=== PATIENT | female | born 1950 | race Hispanic/Latino ===

== ENCOUNTER 2017-05-12 23:20 | Emergency (ER) | payer MEDICARE ==
[2017-05-12] MEDS ORDERED: HYDROXYZINE HCL 25 MG TABLET ONE (23:46)
[2017-05-12 23:59] LABS: BASOPHILS % (AUTO) 0.6 % (0.0-5.0); EOSINOPHILS % (AUTO) 1.6 % (0.0-8.0); HEMATOCRIT 38.1 % (36-48); LYMPHOCYTES % (AUTO) 31.7 % (21.0-51.0); MEAN CORPUSCULAR HEMOGLOBIN 30.9 pg (27.0-33.0); MEAN CORPUSCULAR HGB CONC 34.3 g/dL (32.0-36.0); MONOCYTES % (AUTO) 5.3 % (3.0-13.0); NEUTROPHILS % (AUTO) 60.8 % (40.0-77.0); PLATELET COUNT (AUTO) 230 K/uL (130-400); RED BLOOD CELL COUNT(AUTO) 4.23 MIL/uL (4.00-5.50); RED CELL DISTRIBUTION WIDTH 13.1 % (11.0-15.5); WHITE BLOOD COUNT (AUTO) 7.1 K/uL (4.8-10.8)
[2017-05-13 00:12] LABS: CREATININE 1.1 mg/dL (0.5-1.5); POTASSIUM 3.7 mmol/L (3.5-5.1)
[2017-05-13 00:13] LABS: BILIRUBIN,TOTAL 0.3 mg/dL (0.2-1.0); TOTAL PROTEIN, SERUM 7.1 g/dL (6.0-8.3)
== END 2017-05-13 00:51 | disposition home or self-care (01) ==
LOC: EDH 23:20
DX: F43.20 Adjustment disorder, unspecified (principal); R51 Headache; G47.00 Insomnia, unspecified; E78.5 Hyperlipidemia, unspecified; Z88.0 Allergy status to penicillin
CPT/HCPCS: 36415; 80053; 85025; 93005

== ENCOUNTER 2019-09-14 15:42 | Observation (INO) | payer OTHER, MEDICARE ==
[~2019-09-14] VITALS: Ht 154.9 cm; Wt 81.0 kg
[2019-09-14 16:48] LABS: BASOPHILS % (AUTO) 0.2 % (0.0-5.0); EOSINOPHILS % (AUTO) 0.2 % (0.0-8.0); HEMATOCRIT 37.4 % (36-48); LYMPHOCYTES % (AUTO) 10.1 % (21.0-51.0); MEAN CORPUSCULAR HEMOGLOBIN 30.8 pg (27.0-33.0); MEAN CORPUSCULAR VOLUME 90.6 fL (79-99); MONOCYTES % (AUTO) 2.4 % (3.0-13.0); NEUTROPHILS % (AUTO) 86.7 % (40.0-77.0); PLATELET COUNT (AUTO) 233 K/uL (130-400); RED BLOOD CELL COUNT(AUTO) 4.13 MIL/uL (4.00-5.50); RED CELL DISTRIBUTION WIDTH 12.2 % (11.0-15.5); WHITE BLOOD COUNT (AUTO) 8.3 K/uL (4.8-10.8)
[2019-09-14] MEDS ORDERED: ONDANSETRON HCL 4 MG/2 ML VIAL ONE (16:56)
[2019-09-14] MEDS ORDERED: MECLIZINE HCL 25 MG TABLET ONE (16:56)
[2019-09-14 17:00] LABS: CREATININE 0.7 mg/dL (0.5-1.5); POTASSIUM 3.7 mmol/L (3.5-5.1)
[2019-09-14 17:03] LABS: INR 0.9 (0.85-1.15); PARTIAL THROMBOPLASTIN TIME 21.5 SEC (26.3-35.5); PROTHROMBIN TIME 9.8 SEC (9.6-11.6)
[2019-09-14 17:05] LABS: BILIRUBIN,TOTAL 0.3 mg/dL (0.2-1.0); TOTAL PROTEIN, SERUM 6.9 g/dL (6.0-8.3)
[2019-09-14 17:07] LABS: B-TYPE NATRIURETIC PEPTIDE 120 pg/mL (0-100)
[2019-09-14] MEDS ORDERED: ONDANSETRON HCL 4 MG/2 ML VIAL IVP PRN (20:15)
[2019-09-14] MEDS ORDERED: ACETAMINOPHEN 325 MG TAB PO PRN (20:15)
[2019-09-14 22:55] VITALS: BP 140/47
[2019-09-14 23:00] VITALS: BP 138/59
[2019-09-14 23:05] VITALS: BP 144/65
[2019-09-14 23:43] LABS: CREATINE KINASE, TOTAL 56 U/L (21-232); MYOGLOBIN 43 ng/mL (10-92); TROPONIN I < 0.04 ng/mL (0.00-0.06)
[2019-09-15 03:33] VITALS: BP 114/59
[2019-09-15] MEDS ORDERED: PRAV40TA3 PO (03:51)
[2019-09-15] MEDS ORDERED: PANT40TA54 PO (03:51)
[2019-09-15 04:16] LABS: HEMATOCRIT 34.1 % (36-48); MEAN CORPUSCULAR HEMOGLOBIN 29.8 pg (27.0-33.0); MEAN CORPUSCULAR HGB CONC 33.4 g/dL (32.0-36.0); MEAN CORPUSCULAR VOLUME 89.3 fL (79-99); RED BLOOD CELL COUNT(AUTO) 3.82 MIL/uL (4.00-5.50); RED CELL DISTRIBUTION WIDTH 12.4 % (11.0-15.5); WHITE BLOOD COUNT (AUTO) 6.6 K/uL (4.8-10.8)
[2019-09-15 04:56] LABS: CARBON DIOXIDE 28 mmol/L (21-32); CHLORIDE 107 mmol/L (101-111); CREATINE KINASE, TOTAL 47 U/L (21-232); CREATININE 0.7 mg/dL (0.5-1.5); GLOMERULAR FILTR. RATE CALC 88 mL/min (>60); GLUCOSE,RANDOM 112 mg/dL (70-105); MYOGLOBIN 40 ng/mL (10-92); POTASSIUM 3.9 mmol/L (3.5-5.1); SODIUM SERUM 142 mmol/L (136-145); TROPONIN I < 0.04 ng/mL (0.00-0.06); UREA NITROGEN, BLOOD 16 mg/dL (7-18)
[2019-09-15 08:00] VITALS: BP 122/54
[2019-09-15] MEDS ORDERED: PANTOPRAZOLE SODIUM 40 MG TABLET.DR PO SCH (09:00)
[2019-09-15 11:00] VITALS: BP 138/70
--- NOTE | 2019-09-15 14:23 | NUR ---
MET W PATIENT FOR DC PLANNING- LIVES ALONE, ACTIVE INDEPENDNET, NO DME, DAUGHTER MOSTLY DRIVES TO [facility], HAS PORVIDER 3 HRS DAILY; STATES FEELS SAFE TO RETURN HOME Addendum: 09/16/19 at 1425 by MIRIAM BAILON RN CM Amended: Links added.
[2019-09-15 16:00] VITALS: BP 128/63
[2019-09-15] MEDS ORDERED: SIMVASTATIN 20 MG TABLET PO SCH (21:00)
== END 2019-09-15 19:15 | disposition home or self-care (01) ==
LOC: EDH 15:42 → EDHIP 19:38 → 3AH 21:48
PROVIDERS: ADMIT Internal Medicine; ATTEND Internal Medicine
DX: G43.909 Migraine, unspecified, not intractable, without status migrainosus (principal); R55 Syncope and collapse; L80 Vitiligo; M19.90 Unspecified osteoarthritis, unspecified site; E78.5 Hyperlipidemia, unspecified; Z86.73 Personal history of transient ischemic attack (TIA), and cerebral infarction without residual deficits; Z88.0 Allergy status to penicillin
CPT/HCPCS: 36415 ×2; 70450; 70544 ×2; 70551; 71045; 80048; 80053; 82550 ×3; 83690; 83874 ×2; 83880; 84484 ×3; 85025; 85027; 85610; 85730; 93005; 93306; 93880; 99285; A4600; G0378 ×10; J2405

== ENCOUNTER 2021-09-14 11:21 | Observation (INO) | payer OTHER, MEDICARE ==
[~2021-09-14] VITALS: Ht 167.6 cm; Wt 75.5 kg
[~2021-09-14 11:21] MED LIST: PANT40TA54 PO; PRAV40TA3 PO
[2021-09-14] MEDS ORDERED: DILTIAZEM 125 MG/25 ML INJ IV ONE (11:54)
[2021-09-14 12:00] LABS: BASOPHILS % (AUTO) 0.3 % (0.0-5.0); EOSINOPHILS % (AUTO) 0.8 % (0.0-8.0); HEMATOCRIT 43.1 % (36-48); LYMPHOCYTES % (AUTO) 17.7 % (21.0-51.0); MEAN CORPUSCULAR HEMOGLOBIN 30.6 pg (27.0-33.0); MEAN CORPUSCULAR HGB CONC 33.9 g/dL (32.0-36.0); MEAN CORPUSCULAR VOLUME 90.4 fL (79-99); MONOCYTES % (AUTO) 3.8 % (3.0-13.0); NEUTROPHILS % (AUTO) 77.1 % (40.0-77.0); PLATELET COUNT (AUTO) 234 K/uL (130-400); RED BLOOD CELL COUNT(AUTO) 4.77 MIL/uL (4.00-5.50); RED CELL DISTRIBUTION WIDTH 12.2 % (11.0-15.5)
[2021-09-14] MEDS ORDERED: DILTIAZEM 125 MG/25 ML INJ 125 MG in 0.9%NACL 100ML 100 ML IV SCH (12:00)
[2021-09-14] MEDS ORDERED: DILTIAZEM 50MG VIAL IV SCH (12:00)
[2021-09-14 12:10] LABS: CREATININE 1.1 mg/dL (0.5-1.5); POTASSIUM 3.9 mmol/L (3.5-5.1)
[2021-09-14 12:12] LABS: INR 0.94 (0.85-1.15); PROTHROMBIN TIME 10.3 SEC (9.6-11.6)
[2021-09-14 12:15] LABS: BILIRUBIN,TOTAL 0.6 mg/dL (0.2-1.0); TOTAL PROTEIN, SERUM 6.7 g/dL (6.0-8.3)
[2021-09-14] MEDS ORDERED: DILTIAZEM 60MG TAB PO SCH (13:00)
[2021-09-14] MEDS: DILTIAZEM 60MG TAB PO SCH ×2 (18:03→23:15)
[2021-09-14 18:18] LABS: APPEARANCE,URINE Cloudy (CLEAR); BILIRUBIN,URINE Negative (NEGATIVE); COLOR,URINE Yellow (YELLOW); GLUCOSE, URINE (UA) Negative (NEGATIVE); KETONES,URINE Negative (NEGATIVE); LEUKOCYTE ESTERASE ,URINE Trace (NEGATIVE); NITRATE,URINE Negative (NEGATIVE); OCCULT BLOOD,URINE Negative (NEGATIVE); PROTEIN,URINE Negative (NEGATIVE); UROBILINOGEN,URINE 0.2 mg/dL (0.2-1.0)
[2021-09-14 18:32] LABS: BACTERIA,URINE Few /HPF (None Seen); RBC,URINE 0-1 /HPF (0-1); SQUAMOUS EPITHELIAL CELL,UR Moderate /HPF (0-2)
[2021-09-14 18:33] LABS: MUCUS,URINE Rare LPF (None Seen)
[2021-09-14] MEDS ORDERED: ENOXAPARIN SODIUM 1 MG/KG SQ SCH (21:00)
[2021-09-14 22:10] VITALS: BP 122/60
[2021-09-15 04:00] VITALS: BP 100/50
[2021-09-15 05:18] LABS: HEMATOCRIT 39.5 % (36-48); MEAN CORPUSCULAR HEMOGLOBIN 30.6 pg (27.0-33.0); MEAN CORPUSCULAR HGB CONC 34.4 g/dL (32.0-36.0); MEAN CORPUSCULAR VOLUME 88.8 fL (79-99); PLATELET COUNT (AUTO) 206 K/uL (130-400); RED BLOOD CELL COUNT(AUTO) 4.45 MIL/uL (4.00-5.50); RED CELL DISTRIBUTION WIDTH 12.3 % (11.0-15.5); WHITE BLOOD COUNT (AUTO) 6.3 K/uL (4.8-10.8)
[2021-09-15] MEDS: DILTIAZEM 60MG TAB PO SCH (05:40)
[2021-09-15 05:50] LABS: ALBUMIN 3.4 g/dL (3.5-5.0); BILIRUBIN,TOTAL 0.5 mg/dL (0.2-1.0); CREATININE 0.9 mg/dL (0.5-1.5); PHOSPHORUS 3.8 mg/dL (2.5-4.9); POTASSIUM 3.8 mmol/L (3.5-5.1); THYROID STIMULATING HORMONE 1.64 uIU/mL (0.36-3.74); TOTAL PROTEIN, SERUM 6.2 g/dL (6.0-8.3)
[2021-09-15 06:08] LABS: LYMPHOCYTES % (MANUAL) 21 % (22-44); MAN.DIFF COMMENT-IMPRESSION MANUAL DIFFERENTIAL; MONOCYTES % (MANUAL) 2 % (2-9); SEGMENTED NEUTROPHILS % 77 % (40-70)
[2021-09-15 06:15] LABS: B-TYPE NATRIURETIC PEPTIDE 231 pg/mL (0-100)
[2021-09-15 06:17] LABS: PLATELET MORPHOLOGY COMMENT ADEQUATE
[2021-09-15 07:00] VITALS: BP 101/40
[2021-09-15] MEDS ORDERED: POTASSIUM CHLORIDE 10% ELIXIR 20 MEQ/15 ML UDCUP PO PRN (08:00)
[2021-09-15] MEDS ORDERED: LACTULOSE 20 GM/30 ML UDCUP PO PRN (08:00)
[2021-09-15] MEDS ORDERED: ZOLPIDEM TARTRATE 5 MG TAB PO PRN (08:00)
[2021-09-15] MEDS ORDERED: LEVOFLOXACIN 500 MG/D5W 100 ML 100 ML IV SCH (08:00)
[2021-09-15] MEDS ORDERED: POTASSIUM CHLORIDE 20MEQ/100ML 100 ML IV PRN (08:00)
[2021-09-15] MEDS ORDERED: ACETAMINOPHEN 325 MG TAB PO PRN (08:00)
[2021-09-15] MEDS ORDERED: KCL 20 MEQ ERTAB PO PRN (08:00)
[2021-09-15] MEDS ORDERED: LOPERAMIDE 1 MG/7.5 ML UDCUP PO PRN (08:00)
[2021-09-15] MEDS ORDERED: ENOXAPARIN SODIUM 40 MG/0.4 ML SYRINGE SQ SCH (09:00)
[2021-09-15] MEDS: PANTOPRAZOLE 40 MG/VIAL IVP SCH (09:12)
[2021-09-15] MEDS ORDERED: DICY20TA2 PO (09:32)
[2021-09-15] MEDS ORDERED: CHOL200012 PO (09:32)
[2021-09-15] MEDS ORDERED: MECL-160 PO (09:32)
[2021-09-15] MEDS ORDERED: CYAN500T9 PO (09:32)
[2021-09-15 11:00] VITALS: BP 103/64
[2021-09-15] MEDS ORDERED: PHARMACY COMMUNICATION MISC SCH (11:00)
[2021-09-15] MEDS ORDERED: RIVAROXABAN 2.5 MG TABLET PO ONE (11:00)
[2021-09-15] MEDS ORDERED: DILTIAZEM 120MG SR CAP PO SCH (11:55)
[2021-09-15] MEDS ORDERED: RIVAROXABAN 20 MG TABLET PO ONE (12:00)
[2021-09-15 15:00] VITALS: BP 120/51
[2021-09-15 20:00] VITALS: BP 124/59
[2021-09-15] MEDS ORDERED: ENOXAPARIN SODIUM 80 MG/0.8 ML SQ SCH (21:00)
[2021-09-15] MEDS ORDERED: ENOXAPARIN SODIUM 1 MG/KG SQ SCH (21:00)
[2021-09-15 23:55] VITALS: BP 111/58
[2021-09-16 04:25] VITALS: BP 101/54
[2021-09-16 05:26] LABS: HEMATOCRIT 35.6 % (36-48); MEAN CORPUSCULAR HGB CONC 33.1 g/dL (32.0-36.0); MEAN CORPUSCULAR VOLUME 90.6 fL (79-99); RED BLOOD CELL COUNT(AUTO) 3.93 MIL/uL (4.00-5.50); RED CELL DISTRIBUTION WIDTH 12.1 % (11.0-15.5); WHITE BLOOD COUNT (AUTO) 5.5 K/uL (4.8-10.8)
[2021-09-16 05:42] LABS: CREATININE 0.9 mg/dL (0.5-1.5); POTASSIUM 3.8 mmol/L (3.5-5.1)
[2021-09-16 07:00] VITALS: BP 124/64
[2021-09-16] MEDS: PANTOPRAZOLE 40 MG/VIAL IVP SCH (09:09)
[2021-09-16] MEDS: MEROPENEM 1 GM VIAL IVP SCH ×2 (09:09→18:26)
[2021-09-16] MEDS: DILTIAZEM 120MG SR CAP PO SCH (09:10)
[2021-09-16] MEDS: RIVAROXABAN 20 MG TABLET PO SCH (09:10)
[2021-09-16 11:00] VITALS: BP 123/63
[2021-09-16 15:00] VITALS: BP 120/60
[2021-09-16 20:12] VITALS: BP 128/68
[2021-09-16 23:58] VITALS: BP 110/50
[2021-09-17] MEDS: MEROPENEM 1 GM VIAL IVP SCH ×2 (00:04→08:48)
[2021-09-17 04:00] VITALS: BP 101/50
[2021-09-17 07:51] VITALS: BP 129/64
[2021-09-17] MEDS ORDERED: DILT120C89 PO (08:30)
[2021-09-17] MEDS ORDERED: RIVA20TA PO (08:30)
[2021-09-17] MEDS: PANTOPRAZOLE 40 MG/VIAL IVP SCH (08:48)
[2021-09-17] MEDS: RIVAROXABAN 20 MG TABLET PO SCH (08:48)
[2021-09-17] MEDS: DILTIAZEM 120MG SR CAP PO SCH (08:48)
[2021-09-17] MEDS ORDERED: NITR100C PO (10:03)
[2021-09-17 11:41] VITALS: BP 124/61
[2021-09-24] MEDS ORDERED: ESOM40CA54 PO (11:11)
[2021-09-24] MEDS ORDERED: CIPR-278 PO (15:04)
[2021-09-24] MEDS ORDERED: DILT300C53 PO (15:04)
[2021-09-24] MEDS ORDERED: CLOT45CR23 VG (15:04)
== END 2021-09-17 11:15 | disposition home or self-care (01) ==
LOC: EDH 11:21 → EDHIP 16:09 → 3BH 22:10
PROVIDERS: ADMIT Internal Medicine Critical Care Medicine; ATTEND Internal Medicine Critical Care Medicine
DX: I48.0 Paroxysmal atrial fibrillation (principal); I48.20 Chronic atrial fibrillation, unspecified; N39.0 Urinary tract infection, site not specified; D72.810 Lymphocytopenia; E78.5 Hyperlipidemia, unspecified; K29.70 Gastritis, unspecified, without bleeding; I50.30 Unspecified diastolic (congestive) heart failure; E78.00 Pure hypercholesterolemia, unspecified; S09.90XA Unspecified injury of head, initial encounter; B96.20 Unspecified Escherichia coli [E. coli] as the cause of diseases classified elsewhere; Z16.24 Resistance to multiple antibiotics; Z79.01 Long term (current) use of anticoagulants; Z79.899 Other long term (current) drug therapy; Z88.0 Allergy status to penicillin; W22.8XXA Striking against or struck by other objects, initial encounter; Y93.89 Activity, other specified; X58.XXXA Exposure to other specified factors, initial encounter; Y92.89 Other specified places as the place of occurrence of the external cause; Y99.8 Other external cause status
CPT/HCPCS: 36415 ×3; 70450; 71045; 80048; 80053 ×2; 81001; 82948; 83735; 83880; 84100; 84145; 84443; 84484; 85025 ×2; 85027; 85610; 85730; 87077; 87088; 87186; 93005 ×2; 93306; 93356; 96365; 96375 ×3; 96376 ×2; 99291; C9113 ×3; G0378 ×65; J1956; J2185 ×4; J3490 ×2

== ENCOUNTER → 2021-12-19 | Outpatient (CLI) | payer OTHER, MEDICARE ==
[~2021-12-19] MED LIST changes: +CHOL200012 PO; +CIPR-278 PO; +CLOT45CR23 VG; +CYAN500T9 PO; +DICY20TA2 PO; +DILT300C53 PO; +ESOM40CA54 PO; +MECL-160 PO; -PANT40TA54 PO; +REGADENOSON 0.4 MG/5 ML PF SYG IVP SCH; +RIVA20TA PO
== END | disposition home or self-care (01) ==
LOC: SHCH 08:41
PROVIDERS: ATTEND Internal Medicine Cardiovascular Disease
DX: I48.0 Paroxysmal atrial fibrillation (principal); I48.92 Unspecified atrial flutter
CPT/HCPCS: 78452; 96374; 93017; J2785; A9500 ×2

== ENCOUNTER → 2022-08-26 | Outpatient (CLI) | payer OTHER, MEDICARE ==
[~2022-08-26] VITALS: Ht 165.1 cm; Wt 77.9 kg
[~2022-08-26] MED LIST changes: +METO-408 PO; +PRAV20TA4 PO; -REGADENOSON 0.4 MG/5 ML PF SYG IVP SCH
[2022-08-26 12:29] LABS: BASOPHILS % (AUTO) 0.5 % (0.0-5.0); EOSINOPHILS % (AUTO) 2.1 % (0.0-8.0); HEMATOCRIT 36.8 % (36-48); LYMPHOCYTES % (AUTO) 21.3 % (21.0-51.0); MEAN CORPUSCULAR HEMOGLOBIN 30.6 pg (27.0-33.0); MEAN CORPUSCULAR HGB CONC 32.6 g/dL (32.0-36.0); MEAN CORPUSCULAR VOLUME 93.9 fL (79-99); MONOCYTES % (AUTO) 5.1 % (3.0-13.0); NEUTROPHILS % (AUTO) 70.7 % (40.0-77.0); PLATELET COUNT (AUTO) 208 K/uL (130-400); RED BLOOD CELL COUNT(AUTO) 3.92 MIL/uL (4.00-5.50); RED CELL DISTRIBUTION WIDTH 12.5 % (11.0-15.5); WHITE BLOOD COUNT (AUTO) 6.3 K/uL (4.8-10.8)
[2022-08-26 12:39] LABS: CREATININE 0.7 mg/dL (0.5-1.5)
[2022-08-26 13:29] VITALS: BP 142/72
== END | disposition home or self-care (01) ==
LOC: DAH 10:00 → EDSTATUS 11:00
PROVIDERS: ATTEND Student in an Organized Health Care Education/Training Program
DX: Z01.818 Encounter for other preprocedural examination (principal); Z20.822 Contact with and (suspected) exposure to COVID-19; R22.2 Localized swelling, mass and lump, trunk; Z88.0 Allergy status to penicillin
CPT/HCPCS: 93005; 87426; 80048; 85025; 36415; A6260

== ENCOUNTER 2022-09-03 06:01 | Day surgery (SDC) | payer OTHER, MEDICARE ==
[2022-09-01 09:11] LABS: BASOPHILS % (AUTO) 0.7 % (0.0-5.0); EOSINOPHILS % (AUTO) 1.8 % (0.0-8.0); HEMATOCRIT 38.7 % (36-48); LYMPHOCYTES % (AUTO) 18.6 % (21.0-51.0); MEAN CORPUSCULAR HEMOGLOBIN 30.3 pg (27.0-33.0); MEAN CORPUSCULAR HGB CONC 32.3 g/dL (32.0-36.0); MEAN CORPUSCULAR VOLUME 93.9 fL (79-99); MONOCYTES % (AUTO) 4.7 % (3.0-13.0); NEUTROPHILS % (AUTO) 73.9 % (40.0-77.0); PLATELET COUNT (AUTO) 224 K/uL (130-400); RED BLOOD CELL COUNT(AUTO) 4.12 MIL/uL (4.00-5.50); RED CELL DISTRIBUTION WIDTH 12.5 % (11.0-15.5)
[2022-09-01 09:13] VITALS: BP 146/70
[2022-09-01 09:21] LABS: POTASSIUM 4.7 mmol/L (3.5-5.1)
[2022-09-03] VITALS (17 sets, daily range): BP systolic 114–149; BP diastolic 47–68
[~2022-09-03] VITALS: Ht 167.6 cm; Wt 77.2 kg
[~2022-09-03 06:01] MED LIST changes: +CEFAZOLIN SODIUM 1 GM VIAL IVPB PRN; -CHOL200012 PO; -CIPR-278 PO; -CLOT45CR23 VG; -CYAN500T9 PO; -DICY20TA2 PO; -DILT300C53 PO; -PRAV40TA3 PO
[2022-09-03] MEDS ORDERED: VANCOMYCIN 1G/250ML KIT 250 ML IV ONE (06:35)
[2022-09-03] MEDS ORDERED: LACTATED RINGERS 1000ML 1,000 ML IV ONE (06:35)
[2022-09-03] MEDS ORDERED: FENTANYL CITRATE PF 50 MCG/1 ML 2ML VIAL ONE (07:02)
[2022-09-03] MEDS ORDERED: LIDOCAINE PF 100MG/5ML (2%) SYRINGE 5ML ONE (07:02)
[2022-09-03] MEDS ORDERED: PROPOFOL 10 MG/ML 20ML VIAL IV ONE (07:02)
[2022-09-03] MEDS ORDERED: LIDOCAINE HCL 1% 20 ML VIAL ONE (07:26)
[2022-09-03] MEDS ORDERED: BUPIVACAINE/PF 0.5% 50ML 5 MG/ML VIAL ONE (07:27)
[2022-09-03] MEDS ORDERED: VANCOMYCIN 1G VIAL IV ONE (08:35)
[2022-09-03] MEDS ORDERED: EPHEDRINE SULFATE 50 MG/ML AMPULE ONE (08:47)
[2022-09-03] MEDS ORDERED: ONDANSETRON 4MG INJ ONE (08:55)
== END 2022-09-03 11:15 | disposition home or self-care (01) ==
LOC: DAH 06:01
PROVIDERS: ATTEND Student in an Organized Health Care Education/Training Program
DX: M79.89 Other specified soft tissue disorders (principal); Z20.822 Contact with and (suspected) exposure to COVID-19; I10 Essential (primary) hypertension; K21.9 Gastro-esophageal reflux disease without esophagitis; Z88.0 Allergy status to penicillin; Z98.890 Other specified postprocedural states; Z98.891 History of uterine scar from previous surgery; Z98.41 Cataract extraction status, right eye; Z98.42 Cataract extraction status, left eye; Z79.899 Other long term (current) drug therapy; Z79.01 Long term (current) use of anticoagulants
CPT/HCPCS: 80048; 85025; 87426; 36415; 23071; A6260; A4663; J7120; J3370 ×2; J3010; J2001; J3490; J2704; J2405; A4930; A4215; A4223; A4222; A4221; A4600

== ENCOUNTER → 2022-11-25 | Outpatient (CLI) | payer OTHER, MEDICARE ==
[~2022-11-25] MED LIST changes: -CEFAZOLIN SODIUM 1 GM VIAL IVPB PRN
[2022-11-25 11:51] LABS: BASOPHILS # (AUTO) 0.03 K/uL (0.00-0.20); BASOPHILS % (AUTO) 0.6 % (0.0-5.0); EOSINOPHILS # (AUTO) 0.08 K/uL (0.00-0.70); EOSINOPHILS % (AUTO) 1.7 % (0.0-8.0); HEMATOCRIT 36.4 % (36-48); IMMATURE GRANULOCYTE ABSOLUTE 0.01 K/uL (0-1); LYMPHOCYTES # (AUTO) 1.2 K/uL (1.0-4.8); LYMPHOCYTES % (AUTO) 25.5 % (21.0-51.0); MEAN CORPUSCULAR HEMOGLOBIN 30.6 pg (27.0-33.0); MEAN CORPUSCULAR VOLUME 92.9 fL (79-99); MONOCYTES # (AUTO) 0.3 K/uL (0.1-1.0); MONOCYTES % (AUTO) 6.5 % (3.0-13.0); NEUTROPHILS # (AUTO) 3.1 K/uL (1.8-7.7); NEUTROPHILS % (AUTO) 65.5 % (40.0-77.0); PLATELET COUNT (AUTO) 201 K/uL (130-400); RED BLOOD CELL COUNT(AUTO) 3.92 MIL/uL (4.00-5.50); RED CELL DISTRIBUTION WIDTH 12.5 % (11.0-15.5); WHITE BLOOD COUNT (AUTO) 4.7 K/uL (4.8-10.8)
[2022-11-25 12:07] LABS: CREATININE 0.8 mg/dL (0.5-1.5); POTASSIUM 3.6 mmol/L (3.5-5.1)
== END | disposition home or self-care (01) ==
LOC: LAB 08:11
PROVIDERS: ATTEND Internal Medicine Cardiovascular Disease
DX: I48.0 Paroxysmal atrial fibrillation (principal); Z79.01 Long term (current) use of anticoagulants
CPT/HCPCS: 36415; 80048; 85025

== ENCOUNTER → 2023-06-01 | Outpatient (CLI) | payer OTHER, MEDICARE ==
[~2023-06-01] MED LIST changes: -MECL-160 PO; +MECL-302 PO
[2023-06-01 16:32] LABS: BASOPHILS # (AUTO) 0.04 K/uL (0.00-0.20); BASOPHILS % (AUTO) 0.7 % (0.0-5.0); EOSINOPHILS % (AUTO) 1.8 % (0.0-8.0); HEMATOCRIT 37.5 % (36-48); IMMATURE GRANULOCYTE ABSOLUTE 0.03 K/uL (0-1); LYMPHOCYTES # (AUTO) 1.7 K/uL (1.0-4.8); LYMPHOCYTES % (AUTO) 30.8 % (21.0-51.0); MEAN CORPUSCULAR HEMOGLOBIN 30.6 pg (27.0-33.0); MEAN CORPUSCULAR HGB CONC 32.8 g/dL (32.0-36.0); MEAN CORPUSCULAR VOLUME 93.3 fL (79-99); MONOCYTES # (AUTO) 0.4 K/uL (0.1-1.0); MONOCYTES % (AUTO) 6.6 % (3.0-13.0); NEUTROPHILS # (AUTO) 3.2 K/uL (1.8-7.7); NEUTROPHILS % (AUTO) 59.5 % (40.0-77.0); PLATELET COUNT (AUTO) 244 K/uL (130-400); RED BLOOD CELL COUNT(AUTO) 4.02 MIL/uL (4.00-5.50); RED CELL DISTRIBUTION WIDTH 12.1 % (11.0-15.5); WHITE BLOOD COUNT (AUTO) 5.4 K/uL (4.8-10.8)
== END | disposition home or self-care (01) ==
LOC: LAB 15:20
PROVIDERS: ATTEND Internal Medicine Cardiovascular Disease
DX: Z79.01 Long term (current) use of anticoagulants (principal)
CPT/HCPCS: 36415; 85025

== ENCOUNTER 2023-07-31 19:42 | Emergency (ER) | payer OTHER, MEDICARE ==
[~2023-07-31] VITALS: Ht 167.6 cm; Wt 77.6 kg
[2023-07-31] MEDS: MORPHINE 2 MG SYG ONE (23:25)
[2023-07-31] MEDS: MORPHINE 2 MG SYG IVP ONE (23:25)
[2023-07-31 23:35] LABS: BASOPHILS # (AUTO) 0.03 K/uL (0.00-0.20); BASOPHILS % (AUTO) 0.3 % (0.0-5.0); EOSINOPHILS # (AUTO) 0.01 K/uL (0.00-0.70); EOSINOPHILS % (AUTO) 0.1 % (0.0-8.0); IMMATURE GRANULOCYTE ABSOLUTE 0.04 K/uL (0-1); LYMPHOCYTES # (AUTO) 0.7 K/uL (1.0-4.8); LYMPHOCYTES % (AUTO) 6.4 % (21.0-51.0); MEAN CORPUSCULAR HEMOGLOBIN 30.9 pg (27.0-33.0); MEAN CORPUSCULAR HGB CONC 33.9 g/dL (32.0-36.0); MEAN CORPUSCULAR VOLUME 91.1 fL (79-99); MONOCYTES # (AUTO) 0.2 K/uL (0.1-1.0); MONOCYTES % (AUTO) 2.3 % (3.0-13.0); NEUTROPHILS # (AUTO) 9.6 K/uL (1.8-7.7); NEUTROPHILS % (AUTO) 90.5 % (40.0-77.0); PLATELET COUNT (AUTO) 199 K/uL (130-400); RED BLOOD CELL COUNT(AUTO) 3.95 MIL/uL (4.00-5.50); RED CELL DISTRIBUTION WIDTH 12.3 % (11.0-15.5); WHITE BLOOD COUNT (AUTO) 10.6 K/uL (4.8-10.8)
[2023-07-31 23:45] LABS: CREATININE 0.8 mg/dL (0.5-1.0); POTASSIUM 3.8 mmol/L (3.5-5.1)
[2023-07-31 23:47] LABS: INR <= 0.93 (0.85-1.15); PROTHROMBIN TIME 10.3 SEC (9.6-11.6)
[2023-07-31 23:48] LABS: PARTIAL THROMBOPLASTIN TIME 25.8 SEC (26.3-35.5)
[2023-07-31 23:50] LABS: ALBUMIN 3.8 g/dL (3.5-5.0); BILIRUBIN,TOTAL 0.3 mg/dL (0.2-1.0); TOTAL PROTEIN, SERUM 6.9 g/dL (6.0-8.3)
[2023-08-01] MEDS ORDERED: TRAM50TA4 PO (01:47)
[2023-08-01 02:08] VITALS: BP 151/69; PULSE 76; RESP 17; O2SAT 100
[2023-08-01] MEDS: PROPOFOL 10 MG/ML 20ML VIAL IV SCH (02:18)
== END 2023-08-01 03:06 | disposition home or self-care (01) ==
LOC: EDH 19:42
DX: S43.014A Anterior dislocation of right humerus, initial encounter (principal); I10 Essential (primary) hypertension; E78.00 Pure hypercholesterolemia, unspecified; K21.9 Gastro-esophageal reflux disease without esophagitis; Z88.0 Allergy status to penicillin; W18.30XA Fall on same level, unspecified, initial encounter; Y93.89 Activity, other specified; Y92.89 Other specified places as the place of occurrence of the external cause; Y99.8 Other external cause status
CPT/HCPCS: 99285; 70450; 96374; 80053; 85025; 85610; 85730; 36415; 73030; 73200; 23650; 73020; 99152; J2270 ×2; J2704; J3490